=== PATIENT | female | born 1930 | race Caucasian/White ===

== ENCOUNTER 2018-04-11 16:28 | Inpatient (IN) | payer MEDICARE, OTHER ==
[2018-04-11 17:04] LABS: ADD MAN DIFF? NO
[2018-04-11 17:11] LABS: WHITE BLOOD COUNT 9.5 10^3/ul (4.8-10.8)
[2018-04-11 17:11] LABS: BASOPHILS % 0.2 % (0.0-2.0); EOSINOPHILS # 0.1 10^3/ul (0.0-0.5); EOSINOPHILS % 0.7 % (0.0-7.0); HEMATOCRIT 36.5 % (37.0-47.0); HEMOGLOBIN 11.9 g/dl (12.0-16.0); LYMPHOCYTES # 1.3 10^3/ul (0.8-2.9); LYMPHOCYTES % 13.4 % (15.0-51.0); MEAN CORPUSCULAR HEMOGLOBIN 28.7 pg (29.0-33.0); MEAN CORPUSCULAR HGB CONC 32.6 g/dl (32.0-37.0); MEAN PLATELET VOLUME 9.5 fl (7.4-10.4); MONOCYTE # 0.6 10^3/ul (0.3-0.9); MONOCYTES % 6.6 % (0.0-11.0); NEUTROPHIL # 7.5 10^3/ul (1.6-7.5); NEUTROPHILS % 78.7 % (39.0-77.0); PLATELET COUNT 244 10^3/UL (140-415); RED BLOOD COUNT 4.15 10^6/ul (4.20-5.40)
[2018-04-11 17:33] LABS: ANION GAP 14 (8-16); BLOOD UREA NITROGEN 15 mg/dl (7-20); CALCIUM 9.2 mg/dl (8.4-10.2); CARBON DIOXIDE 30 mmol/L (21-31); CHLORIDE 103 mmol/L (97-110); CREATININE 1.01 mg/dl (0.44-1.00); GLUCOSE 125 mg/dl (70-220); POTASSIUM 4.5 mmol/L (3.5-5.1); SODIUM 142 mmol/L (135-144)
[2018-04-11 17:44] LABS: TROPONIN-I < 0.012 ng/ml (0.000-0.120)
[2018-04-11 18:18] LABS: ADD UMIC YES; UR ASCORBIC ACID NEGATIVE (NEGATIVE); UR BACTERIA MANY /HPF (NONE SEEN); UR BILIRUBIN (Dip) NEGATIVE (NEGATIVE); UR BLOOD (Dip) NEGATIVE (NEGATIVE); UR CLARITY TURBID (CLEAR); UR COLOR AMBER (YELLOW); UR GLUCOSE (Dip) NEGATIVE (NEGATIVE); UR KETONES (Dip) NEGATIVE (NEGATIVE); UR LEUKOCYTE ESTERASE (Dip) 3+ Leu/ul (NEGATIVE); UR MUCUS FEW /HPF (NONE SEEN); UR NITRITE (Dip) POSITIVE (NEGATIVE); UR RBC 1 /HPF (0-5); UR SPECIFIC GRAVITY (Dip) 1.015 (1.003-1.030); UR SQUAMOUS EPITHELIAL CELL FEW /HPF (FEW); UR TOTAL PROTEIN (Dip) 2+ mg/dl (NEGATIVE); UR UROBILINOGEN (Dip) NEGATIVE (NEGATIVE); UR WBC > 182 /HPF (0-5)
[2018-04-11] MEDS: AZTREONAM 1 GM/NS (PMX) 50 ML IVPB (19:00)
[2018-04-11] MEDS ORDERED: ACETAMINOPHEN 325 MG TAB PO (19:00)
[2018-04-11] MEDS ORDERED: ONDANSETRON 4 MG INJ IV ×2 (19:00→23:00)
[2018-04-11] MEDS: VANCOMYCIN 1 GM (PMX) 250 ML IVPB (19:37)
[2018-04-11 21:37] LABS: LACTIC ACID 1.4 mmol/L (0.5-2.0)
[2018-04-11] MEDS ORDERED: ALBUTEROL/IPRATROPIUM (NEB) 3 ML AMP HHN (23:00)
[2018-04-11] MEDS ORDERED: NACL 0.9% 3 ML SYG IV (23:00)
[2018-04-11] MEDS: SOD CHLORIDE 0.9% 1,000 ML IV (23:43)
[2018-04-11] MEDS: METOPROLOL 50 MG TAB PO (23:44)
[2018-04-11 23:47] LABS: CREATINE KINASE 31 IU/L (23-200)
[2018-04-11 23:48] LABS: LACTIC ACID 1.5 mmol/L (0.5-2.0)
[2018-04-11] MEDS: METHYLDOPA 250 MG TAB PO (23:53)
[2018-04-11 23:57] LABS: CK INDEX 3.3; CK-MB 1.01 ng/ml (0.0-2.4); TROPONIN-I 0.012 ng/ml (0.000-0.120)
[2018-04-12 05:42] LABS: ADD MAN DIFF? NO
[2018-04-12 05:55] LABS: BASOPHILS % 0.2 % (0.0-2.0); EOSINOPHILS # 0.1 10^3/ul (0.0-0.5); EOSINOPHILS % 1.4 % (0.0-7.0); HEMATOCRIT 35.7 % (37.0-47.0); HEMOGLOBIN 11.4 g/dl (12.0-16.0); LYMPHOCYTES # 1.3 10^3/ul (0.8-2.9); LYMPHOCYTES % 12.6 % (15.0-51.0); MEAN CORPUSCULAR HEMOGLOBIN 28.9 pg (29.0-33.0); MEAN CORPUSCULAR HGB CONC 31.9 g/dl (32.0-37.0); MEAN CORPUSCULAR VOLUME 90.4 fl (82.0-101.0); MONOCYTE # 0.9 10^3/ul (0.3-0.9); MONOCYTES % 8.6 % (0.0-11.0); NEUTROPHIL # 7.6 10^3/ul (1.6-7.5); NEUTROPHILS % 76.8 % (39.0-77.0); PLATELET COUNT 216 10^3/UL (140-415); RED BLOOD COUNT 3.95 10^6/ul (4.20-5.40)
[2018-04-12 05:55] LABS: WHITE BLOOD COUNT 9.9 10^3/ul (4.8-10.8)
[2018-04-12 06:59] LABS: ALANINE AMINOTRANSFERASE 23 IU/L (13-69); ALBUMIN 3.1 g/dl (3.3-4.9); ALBUMIN/GLOBULIN RATIO 1.19; ALKALINE PHOSPHATASE 76 IU/L (42-121); ANION GAP 11 (8-16); ASPARTATE AMINO TRANSFERASE 14 IU/L (15-46); BILIRUBIN,INDIRECT 0.3 mg/dl (0-1.1); BILIRUBIN,TOTAL 0.3 mg/dl (0.2-1.3); BLOOD UREA NITROGEN 16 mg/dl (7-20); CALCIUM 8.7 mg/dl (8.4-10.2); CARBON DIOXIDE 32 mmol/L (21-31); CHLORIDE 103 mmol/L (97-110); CREATINE KINASE 28 IU/L (23-200); CREATININE 1.01 mg/dl (0.44-1.00); GLUCOSE 105 mg/dl (70-220); MAGNESIUM 1.8 mg/dl (1.7-2.5); POTASSIUM 3.9 mmol/L (3.5-5.1); SODIUM 142 mmol/L (135-144); TOTAL PROTEIN 5.7 g/dl (6.1-8.1)
[2018-04-12 07:08] LABS: CK-MB 0.84 ng/ml (0.0-2.4); TROPONIN-I 0.016 ng/ml (0.000-0.120)
[2018-04-12] MEDS: METHYLDOPA 250 MG TAB PO ×2 (08:30→21:27)
[2018-04-12] MEDS: DONEPEZIL 10 MG TAB PO (08:30)
[2018-04-12] MEDS: METOPROLOL 50 MG TAB PO ×2 (08:31→21:28)
[2018-04-12] MEDS: HEPARIN 5,000 UNIT/0.5 ML VIAL SC ×2 (08:32→21:30)
[2018-04-12] MEDS: SUCRALFATE 1 GM TAB PO ×4 (08:34→21:23)
[2018-04-12] MEDS: AZTREONAM 0.5 GM in SOD CHLORIDE 0.9% 50 ML IV ×3 (09:00→21:34)
[2018-04-12] MEDS: SOD CHLORIDE 0.9% 1,000 ML IV (13:05)
[2018-04-12] MEDS ORDERED: VANCOMYCIN IV PER PHARMACY XX (16:30)
[2018-04-12] MEDS: VANCOMYCIN 1.75 GM in SOD CHLORIDE 0.9% 500 ML IVPB (18:22)
[2018-04-12] MEDS ORDERED: NON-FORMULARY/PATIENT OWN MED (Simvastatin* (Zocor*) 40 MG) PO (21:00)
[2018-04-12] MEDS: ATORVASTATIN 20 MG TAB PO (21:24)
[2018-04-13] MEDS: SUCRALFATE 1 GM TAB PO ×4 (08:06→21:42)
[2018-04-13] MEDS: METHYLDOPA 250 MG TAB PO ×2 (08:46→21:41)
[2018-04-13] MEDS: AZTREONAM 0.5 GM in SOD CHLORIDE 0.9% 50 ML IV (08:46)
[2018-04-13] MEDS: DONEPEZIL 10 MG TAB PO (08:46)
[2018-04-13] MEDS: METOPROLOL 50 MG TAB PO ×2 (08:48→21:41)
[2018-04-13] MEDS: HEPARIN 5,000 UNIT/0.5 ML VIAL SC ×2 (09:10→21:59)
[2018-04-13] MEDS: ERTAPENEM SODIUM 1 GM in SOD CHLORIDE 0.9% 100 ML IVPB (14:35)
[2018-04-13] MEDS: VANCOMYCIN 1 GM 250 ML IVPB (17:31)
[2018-04-13] MEDS: AMLODIPINE 10 MG TAB PO (17:31)
[2018-04-13] MEDS: ACETAMINOPHEN 325 MG TAB PO (21:41)
[2018-04-13] MEDS: ATORVASTATIN 20 MG TAB PO (21:42)
[2018-04-14 06:13] LABS: ANION GAP 10 (8-16); BLOOD UREA NITROGEN 17 mg/dl (7-20); CALCIUM 8.7 mg/dl (8.4-10.2); CARBON DIOXIDE 27 mmol/L (21-31); CHLORIDE 109 mmol/L (97-110); CREATININE 0.89 mg/dl (0.44-1.00); GLUCOSE 112 mg/dl (70-220); POTASSIUM 4.2 mmol/L (3.5-5.1); SODIUM 142 mmol/L (135-144)
[2018-04-14] MEDS: METHYLDOPA 250 MG TAB PO ×2 (08:48→21:36)
[2018-04-14] MEDS: SUCRALFATE 1 GM TAB PO ×4 (08:48→21:38)
[2018-04-14] MEDS: DONEPEZIL 10 MG TAB PO (08:48)
[2018-04-14] MEDS: METOPROLOL 50 MG TAB PO ×2 (08:48→21:37)
[2018-04-14] MEDS: AMLODIPINE 10 MG TAB PO (08:48)
[2018-04-14] MEDS: HEPARIN 5,000 UNIT/0.5 ML VIAL SC ×2 (08:55→21:45)
[2018-04-14] MEDS ORDERED: AMLODIPINE 5 MG TAB PO (13:30)
[2018-04-14] MEDS: ERTAPENEM SODIUM 1 GM in SOD CHLORIDE 0.9% 100 ML IVPB (13:30)
[2018-04-14] MEDS: hydrALAzine 20 MG INJ IV (16:54)
[2018-04-14] MEDS: VANCOMYCIN 1 GM 250 ML IVPB (17:16)
[2018-04-14] MEDS: ATORVASTATIN 20 MG TAB PO (21:36)
[2018-04-14] MEDS: ACETAMINOPHEN 325 MG TAB PO (23:37)
[2018-04-15] MEDS: METHYLDOPA 250 MG TAB PO ×2 (08:57→20:18)
[2018-04-15] MEDS: AMLODIPINE 10 MG TAB PO (08:57)
[2018-04-15] MEDS: SUCRALFATE 1 GM TAB PO ×4 (08:58→20:18)
[2018-04-15] MEDS: METOPROLOL 50 MG TAB PO ×2 (08:58→20:18)
[2018-04-15] MEDS: DONEPEZIL 10 MG TAB PO (08:58)
[2018-04-15] MEDS: HEPARIN 5,000 UNIT/0.5 ML VIAL SC ×2 (08:59→20:19)
[2018-04-15] MEDS: ERTAPENEM SODIUM 1 GM in SOD CHLORIDE 0.9% 100 ML IVPB (13:03)
[2018-04-15 17:39] LABS: VANCOMYCIN,TROUGH 10.5 ug/ml (10.0-20.0)
[2018-04-15] MEDS: VANCOMYCIN 1 GM 250 ML IVPB (18:32)
[2018-04-15] MEDS: ATORVASTATIN 20 MG TAB PO (20:18)
[2018-04-15] MEDS: ACETAMINOPHEN 325 MG TAB PO (23:40)
[2018-04-16 05:11] LABS: ADD MAN DIFF? NO
[2018-04-16 05:19] LABS: BASOPHILS % 0.2 % (0.0-2.0); EOSINOPHILS # 0.2 10^3/ul (0.0-0.5); EOSINOPHILS % 2.7 % (0.0-7.0); HEMATOCRIT 35.3 % (37.0-47.0); HEMOGLOBIN 11.4 g/dl (12.0-16.0); LYMPHOCYTES # 1.6 10^3/ul (0.8-2.9); LYMPHOCYTES % 20.1 % (15.0-51.0); MEAN CORPUSCULAR HEMOGLOBIN 28.4 pg (29.0-33.0); MEAN CORPUSCULAR HGB CONC 32.3 g/dl (32.0-37.0); MEAN PLATELET VOLUME 9.9 fl (7.4-10.4); MONOCYTE # 0.6 10^3/ul (0.3-0.9); MONOCYTES % 7.3 % (0.0-11.0); NEUTROPHIL # 5.5 10^3/ul (1.6-7.5); NEUTROPHILS % 68.2 % (39.0-77.0); PLATELET COUNT 197 10^3/UL (140-415); RED BLOOD COUNT 4.01 10^6/ul (4.20-5.40); RED CELL DISTRIBUTION WIDTH 13.2 % (11.5-14.5)
[2018-04-16 05:19] LABS: WHITE BLOOD COUNT 8.1 10^3/ul (4.8-10.8)
[2018-04-16 05:44] LABS: ANION GAP 10 (8-16); BLOOD UREA NITROGEN 17 mg/dl (7-20); CALCIUM 9.2 mg/dl (8.4-10.2); CARBON DIOXIDE 29 mmol/L (21-31); CHLORIDE 107 mmol/L (97-110); CREATININE 0.77 mg/dl (0.44-1.00); GLUCOSE 121 mg/dl (70-220); POTASSIUM 3.9 mmol/L (3.5-5.1); SODIUM 142 mmol/L (135-144)
[2018-04-16] MEDS: DONEPEZIL 10 MG TAB PO (09:18)
[2018-04-16] MEDS: SUCRALFATE 1 GM TAB PO ×4 (09:18→20:24)
[2018-04-16] MEDS: METHYLDOPA 250 MG TAB PO ×2 (09:19→20:24)
[2018-04-16] MEDS: HEPARIN 5,000 UNIT/0.5 ML VIAL SC ×2 (09:19→20:34)
[2018-04-16] MEDS: METOPROLOL 50 MG TAB PO ×2 (09:20→20:28)
[2018-04-16] MEDS: AMLODIPINE 10 MG TAB PO (09:20)
[2018-04-16] MEDS: ERTAPENEM SODIUM 1 GM in SOD CHLORIDE 0.9% 100 ML IVPB (13:22)
[2018-04-16] MEDS: VANCOMYCIN 1.25 GM in SOD CHLORIDE 0.9% 250 ML IVPB (17:49)
[2018-04-16] MEDS: ACETAMINOPHEN 325 MG TAB PO (20:24)
[2018-04-16] MEDS: ATORVASTATIN 20 MG TAB PO (20:24)
[2018-04-16] MEDS: clonAZEPAM 0.5 MG TAB PO (20:30)
[2018-04-17 05:17] LABS: ADD MAN DIFF? NO
[2018-04-17 05:29] LABS: EOSINOPHILS # 0.2 10^3/ul (0.0-0.5); EOSINOPHILS % 2.5 % (0.0-7.0); HEMATOCRIT 32.6 % (37.0-47.0); HEMOGLOBIN 10.5 g/dl (12.0-16.0); LYMPHOCYTES # 1.7 10^3/ul (0.8-2.9); LYMPHOCYTES % 20.7 % (15.0-51.0); MEAN CORPUSCULAR HEMOGLOBIN 28.6 pg (29.0-33.0); MEAN CORPUSCULAR HGB CONC 32.2 g/dl (32.0-37.0); MEAN CORPUSCULAR VOLUME 88.8 fl (82.0-101.0); MEAN PLATELET VOLUME 10.6 fl (7.4-10.4); MONOCYTE # 0.8 10^3/ul (0.3-0.9); MONOCYTES % 9.4 % (0.0-11.0); NEUTROPHIL # 5.5 10^3/ul (1.6-7.5); NEUTROPHILS % 66.4 % (39.0-77.0); PLATELET COUNT 182 10^3/UL (140-415); RED BLOOD COUNT 3.67 10^6/ul (4.20-5.40); RED CELL DISTRIBUTION WIDTH 13.2 % (11.5-14.5)
[2018-04-17 05:29] LABS: WHITE BLOOD COUNT 8.3 10^3/ul (4.8-10.8)
[2018-04-17 05:42] LABS: MAGNESIUM 1.7 mg/dl (1.7-2.5)
[2018-04-17 05:43] LABS: ANION GAP 10 (8-16); BLOOD UREA NITROGEN 19 mg/dl (7-20); CALCIUM 9.1 mg/dl (8.4-10.2); CARBON DIOXIDE 31 mmol/L (21-31); CHLORIDE 105 mmol/L (97-110); CREATININE 0.92 mg/dl (0.44-1.00); GLUCOSE 112 mg/dl (70-220); POTASSIUM 3.9 mmol/L (3.5-5.1); SODIUM 142 mmol/L (135-144)
[2018-04-17 05:47] LABS: CHOL/HDL RATIO 3.3 RATIO; HDL CHOLESTEROL 45 mg/dl (33-92); LDL CHOLESTEROL,CALCULATED 55 mg/dl; TRIGLYCERIDES 244 mg/dl (0-149)
[2018-04-17 05:47] LABS: CHOLESTEROL 149 mg/dl (100-200)
[2018-04-17] MEDS: METHYLDOPA 250 MG TAB PO ×2 (08:31→20:24)
[2018-04-17] MEDS: DONEPEZIL 10 MG TAB PO (08:31)
[2018-04-17] MEDS: SUCRALFATE 1 GM TAB PO ×4 (08:31→20:24)
[2018-04-17] MEDS: AMLODIPINE 10 MG TAB PO (08:32)
[2018-04-17] MEDS: METOPROLOL 50 MG TAB PO ×2 (08:32→20:25)
[2018-04-17] MEDS: HEPARIN 5,000 UNIT/0.5 ML VIAL SC ×2 (08:33→20:27)
[2018-04-17] MEDS: ERTAPENEM SODIUM 1 GM in SOD CHLORIDE 0.9% 100 ML IVPB (13:49)
[2018-04-17] MEDS: VANCOMYCIN 1.25 GM in SOD CHLORIDE 0.9% 250 ML IVPB (17:54)
[2018-04-17] MEDS: ATORVASTATIN 20 MG TAB PO (20:24)
[2018-04-17] MEDS: clonAZEPAM 0.5 MG TAB PO (20:36)
[2018-04-18 05:21] LABS: ADD MAN DIFF? NO
[2018-04-18 05:27] LABS: BASOPHILS % 0.3 % (0.0-2.0); EOSINOPHILS # 0.2 10^3/ul (0.0-0.5); EOSINOPHILS % 2.4 % (0.0-7.0); HEMATOCRIT 34.8 % (37.0-47.0); HEMOGLOBIN 11.3 g/dl (12.0-16.0); LYMPHOCYTES # 1.9 10^3/ul (0.8-2.9); MEAN CORPUSCULAR HEMOGLOBIN 28.5 pg (29.0-33.0); MEAN CORPUSCULAR HGB CONC 32.5 g/dl (32.0-37.0); MEAN CORPUSCULAR VOLUME 87.7 fl (82.0-101.0); MEAN PLATELET VOLUME 10.1 fl (7.4-10.4); MONOCYTE # 0.7 10^3/ul (0.3-0.9); MONOCYTES % 7.1 % (0.0-11.0); NEUTROPHIL # 7.1 10^3/ul (1.6-7.5); NEUTROPHILS % 70.3 % (39.0-77.0); PLATELET COUNT 190 10^3/UL (140-415); RED BLOOD COUNT 3.97 10^6/ul (4.20-5.40); RED CELL DISTRIBUTION WIDTH 13.3 % (11.5-14.5)
[2018-04-18 05:27] LABS: WHITE BLOOD COUNT 10.1 10^3/ul (4.8-10.8)
[2018-04-18 05:37] LABS: ANION GAP 10 (8-16); BLOOD UREA NITROGEN 22 mg/dl (7-20); CALCIUM 9.3 mg/dl (8.4-10.2); CARBON DIOXIDE 30 mmol/L (21-31); CHLORIDE 104 mmol/L (97-110); CREATININE 0.82 mg/dl (0.44-1.00); GLUCOSE 117 mg/dl (70-220); POTASSIUM 4.1 mmol/L (3.5-5.1); SODIUM 140 mmol/L (135-144)
[2018-04-18 05:39] LABS: PHOSPHORUS 4.4 mg/dl (2.5-4.9)
[2018-04-18 05:39] LABS: MAGNESIUM 1.6 mg/dl (1.7-2.5)
[2018-04-18] MEDS: METHYLDOPA 250 MG TAB PO (09:58)
[2018-04-18] MEDS: DONEPEZIL 10 MG TAB PO (09:58)
[2018-04-18] MEDS: SUCRALFATE 1 GM TAB PO ×2 (09:58→12:09)
[2018-04-18] MEDS: METOPROLOL 50 MG TAB PO (09:59)
[2018-04-18] MEDS: AMLODIPINE 10 MG TAB PO (09:59)
[2018-04-18] MEDS: HEPARIN 5,000 UNIT/0.5 ML VIAL SC (10:00)
[2018-04-18] MEDS: ERTAPENEM SODIUM 1 GM in SOD CHLORIDE 0.9% 100 ML IVPB (13:01)
== END 2018-04-18 14:55 | DRG 690 ==
LOC: E/R 16:28 → MS1 18:43
DX: N39.0 Urinary tract infection, site not specified (principal); R78.81 Bacteremia; I11.0 Hypertensive heart disease with heart failure; I50.9 Heart failure, unspecified; E66.9 Obesity, unspecified; E78.5 Hyperlipidemia, unspecified; R53.81 Other malaise; F03.90 Unspecified dementia, unspecified severity, without behavioral disturbance, psychotic disturbance, mood disturbance, and anxiety; R62.7 Adult failure to thrive; Z68.37 Body mass index [BMI] 37.0-37.9, adult; R32 Unspecified urinary incontinence; Z88.0 Allergy status to penicillin; Z90.710 Acquired absence of both cervix and uterus; Z90.49 Acquired absence of other specified parts of digestive tract
CPT/HCPCS: 36415; 71045; 80048; 80053; 80061; 80202; 81001; 82550; 82553; 83605; 83735; 84100; 84484; 85025; 87040; 87081; 87086; 93005; 93970; 97162; 99285-25